=== PATIENT | female | born 2000 | race Two or more races ===

== ENCOUNTER 2024-01-20 00:42 | Emergency (ER) | payer OTHER ==
[~2024-01-20] VITALS: Ht 160 cm; Wt 63.6 kg
[2024-01-20 01:08] VITALS: BP 109/72; PULSE 67; RESP 16; TEMP 99; O2SAT 97
[2024-01-20] MEDS ORDERED: CYCL-839 PO (02:36)
[2024-01-20] MEDS ORDERED: IBUP1TAB5 PO (02:36)
[2024-01-20] MEDS: predniSONE 20 MG TAB PO ONE (04:00)
[2024-01-20] MEDS: HYDROcodone-ACET 5/325MG TAB PO ONE (04:00)
== END 2024-01-20 04:07 | disposition home or self-care (01) ==
LOC: ER 00:42
DX: M54.6 Pain in thoracic spine (principal); M54.59 Other low back pain
CPT/HCPCS: 72070; 72100; 99284; J7512